=== PATIENT | female | born 1980 | race African-American/Black ===

== ENCOUNTER 2022-11-01 17:39 | Outpatient (CLI) | payer OTHER, SELFPAY ==
--- NOTE | ~2022-11-01 | MM_ITS ---
EXAMINATION: MM diagnostic milo BI w geraldo HISTORY: Left breast lump TECHNIQUE: ML, MLO and CC 3-D tomosynthesis images of both breasts were performed and synthetic 2-D i mages were generated. CAD analysis was submitted and interpreted. COMPARISON: None BREAST PARENCHYMAL COMPOSITION: The breasts are heterogeneously dense, which may obscure small masses . FINDINGS: No suspicious mass or architectural distortion, malignant calcification, skin thickening or retraction is detected. Considering the heterogeneously dense stroma which may obscure masses in either breast and the compla int of left breast lump, location unspecified, bilateral complete breast ultrasound examination is re commended. IMPRESSION: 1. Complaint of left breast lump in heterogeneously dense breasts of both breasts, which may obscure masses 2. Bilateral complete breast ultrasound examination is recommended BI-RADS Category 0: Incomplete: Needs additional imaging evaluation. Reviewed, dictated and finalized at location A. IMPRESSION: 1. Complaint of left breast lump in heterogeneously dense breasts of both breas ts, which may obscure masses 2. Bilateral complete breast ultrasound examination is recommended BI-RADS Category 0: Incomplete: Needs additional imaging evaluation.
== END 2022-11-01 17:40 | disposition home or self-care (01) ==
PROVIDERS: Visit Provider Nurse Practitioner
DX: N63.20 Unspecified lump in the left breast, unspecified quadrant (principal); N64.4 Mastodynia; R92.8 Other abnormal and inconclusive findings on diagnostic imaging of breast
CPT/HCPCS: 77062; 77066; G0279

== ENCOUNTER 2022-11-04 11:07 | Outpatient (CLI) | payer OTHER, SELFPAY ==
--- NOTE | ~2022-11-04 | US_ITS ---
US breast BI complete DATE: 11/04/2022 11:35 INDICATION: Left breast lump TECHNIQUE: Real-time imaging of bilateral breasts including all 4 quadrants and subareolar areas COMPARISON: November 01, 2022 bilateral diagnostic mammogram FINDINGS: No suspicious mass or shadowing, cyst or other significant sonographic abnormality is detec jose. IMPRESSION: BI-RADS Category 1: Negative Recommendation: Routine mammographic screening. If there is a clinically suspicious palpable abnormality, further evaluation may be appropriate. Reviewed, dictated and finalized at [facility]. Reviewed, dictated and finalized at location A. IMPRESSION: BI-RADS Category 1: Negative Recommendation: Routine mammographic screening. If there is a clinically suspicious palpable abnormality, further evaluation ma y be appropriate.
== END 2022-11-04 11:08 | disposition home or self-care (01) ==
PROVIDERS: Visit Provider Nurse Practitioner
DX: N64.4 Mastodynia (principal)
CPT/HCPCS: 76641